=== PATIENT | male | born 1970 | race Two or more races ===

== ENCOUNTER 2023-10-31 10:34 | Emergency (ER) | payer OTHER ==
[2023-10-31 10:45] VITALS: BP 157/67; PULSE 70; RESP 20; TEMP 99; BMI 26.6
[2023-10-31 12:38] LABS: BASO % 0.7 % (0-2.0); EOS % 1.5 % (0-4.5); HEMATOCRIT 40.5 % (35.4-49); HEMOGLOBIN 13.3 GM/dL (11.7-16.9); LYMPH % 23.6 % (8-40); MCH 29.4 pg (25.7-33.7); MCHC 32.8 g/dl (32.0-35.9); MEAN CELL VOLUME 89.7 fl (80-96); MEAN PLT VOLUME 8.8 fl (7.5-11.1); MONO % 8.6 % (3.8-10.2); NEUT % 65.6 % (42.8-82.8); PLATELET COUNT 287 10^3/uL (134-434); RBC 4.52 M/mm3 (4.00-5.60); WHITE BLOOD COUNT 5.5 K/mm3 (4.0-10.0)
[2023-10-31 12:42] LABS: EPI CELLS 1 /uL (0-25.1); HYALINE CASTS 0 /uL (0-3.1); PH,URINE 5.5 (5.0-8.0); URINE APPEARANCE CLEAR; URINE BACTERIA 1 /uL (0-1359); URINE BILIRUBIN NEGATIVE (NEGATIVE); URINE COLOR YELLOW; URINE GLUCOSE (UA) TRACE (NEGATIVE); URINE KETONE TRACE (NEGATIVE); URINE LEUK ESTERASE NEGATIVE (NEGATIVE); URINE NITRITE NEGATIVE (NEGATIVE); URINE PROTEIN 1+ (NEGATIVE); URINE RBC 9 /uL (0-23.9); URINE WBC 4 /uL (0-25.8)
[2023-10-31 12:54] LABS: POTASSIUM 5.2 mmol/L (3.5-5.1)
[2023-10-31 12:57] LABS: ALBUMIN 4.1 g/dl (3.4-5.0); BLOOD UREA NITROGEN 24.4 mg/dL (7-18); CALCIUM 9.4 mg/dL (8.5-10.1)
[2023-10-31 13:02] LABS: BILIRUBIN,TOTAL 0.4 mg/dL (0.2-1)
== END 2023-10-31 14:02 | disposition home or self-care (01) ==
LOC: JER 10:34
DX: R10.84 Generalized abdominal pain (principal)
CPT/HCPCS: 36415; 80053; 81003; 85025; 87086; 99283-25